=== PATIENT | female | born 1945 | race Caucasian/White ===

== ENCOUNTER 2021-06-28 14:35 | Outpatient (CLI) | payer MEDICARE, OTHER, SELFPAY ==
[2021-06-28 14:57] LABS: Hematocrit 31.1 % (37.0-47.0); Hemoglobin 10.1 g/dL (12.0-15.0); Mean Corpuscular HGB Conc 32.5 g/dl (32-36); Mean Corpuscular Hemoglobin 31.1 pg (26-34); Mean Corpuscular Volume 95.7 fl (80-100); Mean Platelet Volume 9.7 fl (7.4-10.4); Platelet Count Result 335 k/mm3 (150-375); Red Blood Count 3.25 M/mm3 (4.2-5.4); Red Cell Distribution Width 15.9 % (11.5-14.5); White Blood Count 16.8 K/mm3 (4.5-10.0)
[2021-06-28 15:00] LABS: Add Urine Microscopic? NO
[2021-06-28 15:02] LABS: Color Urine Light Yellow (Yellow)
[2021-06-28 15:07] LABS: Appearance Urine Clear (Clear); Glucose Urine UA Negative (Negative); Protein Urine Negative (Negative); Specific Grav Ur 1.005 (1.001-1.035)
[2021-06-28 15:08] LABS: Bilirubin Urine Negative (Negative); Blood Urine Negative (Negative); Ketones Urine Negative (Negative); Leukocyte Esterase Ur Negative LEU/UL (Negative); Nitrate Urine Negative (Negative); Urobilinogen Urine 0.2 mg/dL (<2.0)
[2021-06-28 17:03] LABS: Erythrocyte Sedimentation Rate 23 mm/hr (0-20)
[2021-06-28 20:23] LABS: Alanine Aminotransferase 22 U/L (4-35); Albumin Level 3.9 g/dL (3.5-5.1); Alkaline Phosphatase 74 U/L (38-126); Anion Gap 5 mmol/L (8-16); Aspartate Amino Transferase 25 U/L (14-36); Bilirubin,Total 0.4 mg/dL (0.2-1.3); Blood Urea Nitrogen 19 mg/dL (7-17); CRP < 0.5 mg/dL (<1.0); Carbon Dioxide 27 mmol/L (22-30); Chloride 105 mmol/L (98-107); Estimated Glomerular Filt Rate 54; Glucose 84 mg/dL (65-110); Sodium 137 mmol/L (137-145)
== END 2021-06-28 14:36 | disposition home or self-care (01) ==
LOC: ANHLAB 14:39
PROVIDERS: PCP Pediatrics; Visit Provider Internal Medicine
DX: M05.79 Rheumatoid arthritis with rheumatoid factor of multiple sites without organ or systems involvement (principal); M06.9 Rheumatoid arthritis, unspecified; M19.90 Unspecified osteoarthritis, unspecified site
CPT/HCPCS: 36415; 80053; 81003; 85027; 85652; 86140

== ENCOUNTER 2021-08-31 15:33 | Outpatient (CLI) | payer MEDICARE, OTHER, SELFPAY ==
--- NOTE | ~2021-08-31 | XR_ITS ---
XR chest 2V 08/31/2021 15:57 Indication: Drug therapy. Dyspnea. Procedure: 2 view chest Comparison: No prior studies for comparison. Findings: Mild cardiomegaly. No focal air space disease, pulmonary edema, pleural effusion or suspect ed pneumothorax. Moderate size hiatal hernia. The lungs are hyperinflated which is consistent with, but not diagnostic of chronic obstructive pulmo nary disease. Impression: 1: No acute cardiopulmonary disease. 2: Moderate size hiatal hernia. Reviewed, dictated and finalized at location A. Impression: 1: No acute cardiopulmonary disease. 2: Moderate size hiatal hernia.
== END 2021-08-31 15:34 | disposition home or self-care (01) ==
PROVIDERS: PCP Pediatrics; Visit Provider Internal Medicine
DX: R06.09 Other forms of dyspnea (principal); Z79.899 Other long term (current) drug therapy; K44.9 Diaphragmatic hernia without obstruction or gangrene
CPT/HCPCS: 71046

== ENCOUNTER 2021-11-07 05:34 | Outpatient (CLI) | payer MEDICARE, OTHER, SELFPAY ==
--- NOTE | 2021-11-06 12:58 | SUR.PREOP ---
Called patient 11/06/21 at 12:58 and was advised patient plans on being at [place] at 0615 for capsule endoscopy.
--- NOTE | 2021-11-07 06:55 | SUR.OPER ---
Patient brought to GI Lab. Instructions for patient undergoing Capsule Endoscopy reviewed with patient. Consent form signed. Sensor array applied to patient's abdomen and connected to recorded. Patient swallowed capsule with 16ozs of water infused with Simethicone. Patient instructed they may have clear liquids at 8912-1811 this AM and eat or drink at 1145-7881 this AM. Patient instructed to return to GI Lab at 1500 this afternoon for removal of recording device and to call [phone] or to return to the hospital if any nausea and vomiting or abdominal pain is experienced.
--- NOTE | 2021-11-07 06:58 | SUR.OPER ---
capsule ID [id number], lot [id number], exp 08-22-2022
--- NOTE | 2021-11-07 15:00 | SUR.PHASEII ---
Patient returned to the GI Lab at 1500 for recorder box removal. Patient voiced no complaints. States they have understanding of instructions. Patient left ambulatory.
== END 2021-11-07 05:35 | disposition home or self-care (01) ==
PROVIDERS: PCP Pediatrics; Visit Provider Internal Medicine Gastroenterology
PROC: 0DJ07ZZ Inspection of Upper Intestinal Tract, Via Natural or Artificial Opening (ICD-10-PCS; CPT 91110; principal; 2021-11-07 07:00)
DX: Z01.812 Encounter for preprocedural laboratory examination (principal)
CPT/HCPCS: 91110

== ENCOUNTER 2023-11-08 13:45 | Outpatient (CLI) | payer MEDICARE, OTHER, SELFPAY ==
[2023-11-08 14:13] LABS: Hematocrit 42.2 % (37.0-47.0); Hemoglobin 13.9 g/dL (12.0-15.0); Mean Corpuscular HGB Conc 32.9 g/dl (32-36); Mean Corpuscular Hemoglobin 33.7 pg (26-34); Mean Corpuscular Volume 102.2 fl (80-100); Mean Platelet Volume 9.9 fl (7.4-10.4); Platelet Count Result 377 k/mm3 (150-375); Red Blood Count 4.13 M/mm3 (4.2-5.4); Red Cell Distribution Width 14.8 % (11.5-14.5); White Blood Count 16.6 K/mm3 (4.5-10.0)
[2023-11-08 16:31] LABS: Appearance Urine Clear (Clear); Bacteria Urine None Seen /hpf; Bilirubin Urine Negative (Negative); Blood Urine Negative (Negative); Color Urine Yellow (Yellow); Glucose Urine UA Negative (Negative); Ketones Urine Negative (Negative); Leukocyte Esterase Ur 1+ LEU/UL (Negative); Nitrate Urine Negative (Negative); Non Pathogenic Casts 0-2; Protein Urine Negative (Negative); RBC Urine 0-2 /hpf (0-2); Specific Grav Ur 1.004 (1.001-1.035); Squamous Epithelial Cell Urine None seen /hpf (Few); Urobilinogen Urine 0.2 mg/dL (<2.0)
[2023-11-08 16:35] LABS: Alanine Aminotransferase 19 U/L (6-35); Albumin Level 4.1 g/dL (3.5-5.1); Alkaline Phosphatase 104 U/L (38-126); Anion Gap 10 mmol/L (8-16); Aspartate Amino Transferase 23 U/L (14-36); Bilirubin,Total 0.6 mg/dL (0.2-1.3); Blood Urea Nitrogen 30 mg/dL (7-17); CRP < 0.5 mg/dL (<1.0); Calcium 10.2 mg/dL (8.4-10.2); Carbon Dioxide 27 mmol/L (22-30); Chloride 100 mmol/L (98-107); Estimated Glomerular Filt Rate 48; Glucose 62 mg/dL (65-110); Potassium 3.4 mmol/L (3.4-5.0); Sodium 137 mmol/L (137-145)
[2023-11-08 16:36] LABS: Add Urine Microscopic? YES
[2023-11-08 16:54] LABS: Erythrocyte Sedimentation Rate 17 mm/hr (0-20)
[2023-11-12 14:53] LABS: NIL 0.02 IU/mL; Quantiferon TB Plus, 1T NEGATIVE (NEGATIVE); TB2-NIL 0.01 IU/mL
== END 2023-11-08 13:46 | disposition home or self-care (01) ==
LOC: ANHLAB 13:48
PROVIDERS: Internal Medicine; PCP Pediatrics; Visit Provider Internal Medicine Hematology & Oncology
DX: M05.79 Rheumatoid arthritis with rheumatoid factor of multiple sites without organ or systems involvement (principal); M19.90 Unspecified osteoarthritis, unspecified site; M06.9 Rheumatoid arthritis, unspecified
CPT/HCPCS: 36415; 80053; 81001; 85027; 85652; 86140; 86480; 87086; 87147; 87181; 87186